=== PATIENT | female | born 1970 ===

== ENCOUNTER → 2020-09-07 | Outpatient (CLI) | payer OTHER ==
[~2020-09-07] MED LIST: DOXYCYCLINE HY100 MG PO; LISINOPRIL10 MG PO; METFORMIN HCL500 M3 PO; TYLENOL-CODEINE1 TAB PO
== END | disposition home or self-care (01) ==
LOC: SONOGRAMA 10:49 → MAMO-SONO 11:00
DX: M75.41 Impingement syndrome of right shoulder (principal); M65.821 Other synovitis and tenosynovitis, right upper arm; M24.511 Contracture, right shoulder; M77.11 Lateral epicondylitis, right elbow